=== PATIENT | female | born 1985 | race Caucasian/White ===

== ENCOUNTER 2023-07-23 13:13 | Emergency (ER) | payer BC ==
[2023-07-23 13:29] VITALS: TEMP 98.1
[2023-07-23] MEDS ORDERED: Hydromorphone 1 mg/ml Injection IV ONE (13:41)
[2023-07-23] MEDS ORDERED: Zofran 4 MG/2 ML VIAL IV ONE (13:41)
[2023-07-23] MEDS ORDERED: Sodium Chloride 0.9% 1000 ML 1,000 ML IV STA ×2 (13:41→15:35)
--- NOTE | 2023-07-23 13:41 | ERPHSYRPT ---
- History of Present Illness Time Seen by Provider: 07/23/23 13:30 Source: patient Exam Limitations: clinical condition Patient Subjective Stated Complaint: Vomiting/diarrhea Triage Nursing Assessment: Patient brought into ED per EMS and transferred to bed with assist of 2. Patient A+O X 3. Patient's skin pink, warm and dry. Patient complains of N/V and diarrhea that came on all of a sudden while traveling. Patient complains of body aches 03/11. Physician History: This is a 37-year-old white female patient who was just passing through the area when she had sudden, severe onset of significant vomiting and diarrhea as well as body aches. Patient was brought into the emergency department by the paramedics. Patient states she is traveling through the area with family members. Family members have much milder symptoms of bodyaches and nausea. Patient denies chest pain. Patient denies shortness of breath. Patient denies cough. Patient has no significant abdominal pain. Patient has no known drug allergies. Patient does have a history of hypothyroidism, gastroesophageal reflux disease and anxiety. Timing/Duration: today Cough Quality/Degree: no cough Possible Cause: no prior episodes Modifying Factors: Improves With: nothing Associated Symptoms: muscle aches, other, No chest pain/soreness, No cough (Vomiting and diarrhea) Allergies/Adverse Reactions: No Known Drug Allergies Allergy (Unverified 07/23/23 13:17) Hx Influenza Vaccination/Date Given: No Hx Pneumococcal Vaccination/Date Given: No Immunizations Up to Date: Yes Travel Risk - International Travel Have you traveled outside of the country in past 3 weeks: No - Coronavirus Screening Are you exhibiting any of the following symptoms?: Yes Symptoms: Vomiting/Diarrhea, Headaches/Body Aches/Fatigue Close contact with a COVID-19 positive Pt in past 14-21 Days: No - Vaccine Status Have you recieved a Covid-19 vaccination: Yes 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 - Vaccination Dates Dates if Unknown: na - Review of Systems Constitutional: Weakness Eyes: No Symptoms Ears, Nose, & Throat: No Symptoms Respiratory: No Symptoms Cardiac: No Symptoms Abdominal/Gastrointestinal: Nausea, Vomiting, Diarrhea, Appetite Changes, No Abdominal Pain, No Constipation Genitourinary Symptoms: No Symptoms Musculoskeletal: Arthralgias, Myalgias Skin: No Symptoms Neurological: No Symptoms Psychological: No Symptoms Endocrine: No Symptoms Hematologic/Lymphatic: No Symptoms Immunological/Allergic: No Symptoms All Other Systems: Reviewed and Negative - Past Medical History Pertinent Past Medical History: No Neurological History: No Pertinent History ENT History: No Pertinent History Cardiac History: No Pertinent History Respiratory History: No Pertinent History Endocrine Medical History: Hypothyroidism Musculoskeletal History: No Pertinent History GI Medical History: GERD History: No Pertinent History Psycho-Social History: Anxiety Female Reproductive Disorders: No Pertinent History - Past Surgical History Past Surgical History: Yes Neuro Surgical History: No Pertinent History Cardiac: No Pertinent History Respiratory: No Pertinent History Gastrointestinal: Appendectomy, Cholecystectomy Genitourinary: No Pertinent History Musculoskeletal: No Pertinent History Female Surgical History: No Pertinent History - Social History Smoking Status: Never smoker Exposure to second hand smoke: No Drug Use: none Patient Lives Alone: No - Female History Hx Last Menstrual Period: last month Hx Now: No - Nursing Vital Signs Nursing Vital Signs: Initial Vital Signs Temperature 98.1 F 07/23/23 13:20 Pulse Rate 104 H 07/23/23 13:20 Respiratory Rate 20 07/23/23 13:20 Blood Pressure 133/96 07/23/23 13:20 O2 Sat by Pulse Oximetry 100 07/23/23 13:20 Pain Scale Pain Intensity 5 - Physical Exam General Appearance: mild distress, alert, anxiety, thin Eye Exam: PERRL/EOMI, eyes nml inspection Ears, Nose, Throat Exam: normal ENT inspection, moist mucous membranes Neck Exam: normal inspection, non-tender, supple, full range of motion Respiratory Exam: normal breath sounds, lungs clear, airway intact, No chest tenderness, No respiratory distress Cardiovascular Exam: regular rate/rhythm, normal heart sounds, normal peripheral pulses Gastrointestinal/Abdomen Exam: soft, normal bowel sounds, No tenderness Pelvic Exam: not done Rectal Exam: not done Back Exam: normal inspection, normal range of motion, No CVA tenderness, No vertebral tenderness Extremity Exam: normal inspection, normal range of motion, pelvis stable Neurologic Exam: alert, oriented x 3, cooperative, bight maker II-XII nml as tested, normal mood/affect, sensation nml Skin Exam: normal color, warm, dry Lymphatic Exam: No adenopathy SpO2 Interpretation: normal SpO2: 100 O2 Delivery: Room Air - Course Nursing assessment & vital signs reviewed: Yes Ordered Tests: Active Orders 24 hr Category Date Time Status Clean Catch Urine Specimen STAT Care 07/23/23 13:41 Active IV Insertion STAT Care 07/23/23 13:41 Active ABDOMEN AND PELVIS W/0 CONTRAS [CT] Stat Exams 07/23/23 14:50 Completed AMYLASE Stat Lab 07/23/23 14:10 Completed BLOOD CULTURE Stat Lab 07/23/23 13:42 Received CBC W DIFF Stat Lab 07/23/23 14:10 Completed CMP Stat Lab 07/23/23 14:10 Completed LIPASE Stat Lab 07/23/23 14:10 Completed MONO SCREEN Stat Lab 07/23/23 14:10 Completed T4 (Thyroxine) Stat Lab 07/23/23 14:10 Completed TROPONIN Q4H Lab 07/23/23 14:10 Completed TROPONIN Q4H Lab 07/23/23 17:45 Ordered TROPONIN Q4H Lab 07/23/23 21:45 Ordered TSH, 3RD Generation Stat Lab 07/23/23 14:10 Completed UA W/RFX UR CULTURE Stat Lab 07/23/23 14:54 Completed Urine Triage Profile Stat Lab 07/23/23 14:54 Completed Medication Summary Generic Name Dose Route Start Last Admin Trade Name Freq PRN Reason Stop Dose Admin Sodium Chloride 1,000 mls @ 999 mls/hr 07/23/23 15:35 07/23/23 15:46 Sodium Chloride 0.9% 1000 Ml IV 07/23/23 16:35 999 mls/hr .Q1H1M STA Administration Discontinued Medications Generic Name Dose Route Start Last Admin Trade Name Freq PRN Reason Stop Dose Admin Hydromorphone HCl 1 mg 07/23/23 13:41 07/23/23 13:59 Hydromorphone 1 Mg/1ml Inj IV 07/23/23 13:42 1 mg STAT ONE Administration Hydromorphone HCl Confirm 07/23/23 13:53 Hydromorphone 1 Mg/1ml Inj Administered 07/23/23 13:54 Dose 1 mg .ROUTE .STK-MED ONE Sodium Chloride 1,000 mls @ 999 mls/hr 07/23/23 13:41 07/23/23 15:00 Sodium Chloride 0.9% 1000 Ml IV 07/23/23 14:41 Infused .Q1H1M STA Infusion Sodium Chloride Confirm 07/23/23 13:53 Sodium Chloride 0.9% 1000 Ml Administered 07/23/23 13:54 Dose 1,000 mls @ ud .ROUTE .STK-MED ONE Metronidazole 500 mg in 100 mls @ 200 mls/hr 07/23/23 15:35 07/23/23 15:46 Flagyl 500 Mg Ivpb IV 07/23/23 16:04 200 ml/hr STAT STA 200 mls/hr Administration Sodium Chloride Confirm 07/23/23 15:43 Sodium Chloride 0.9% 1000 Ml Administered 07/23/23 15:44 Dose 1,000 mls @ ud .ROUTE .STK-MED ONE Metronidazole Confirm 07/23/23 15:43 Flagyl 500 Mg Ivpb Administered 07/23/23 15:44 Dose 500 mg in 100 mls @ ud IV .STK-MED ONE Ondansetron HCl 4 mg 07/23/23 13:41 07/23/23 13:58 Ondansetron Hcl 4 Mg/2 Ml Vial IV 07/23/23 13:42 4 mg STAT ONE Administration Ondansetron HCl Confirm 07/23/23 13:53 Ondansetron Hcl 4 Mg/2 Ml Vial Administered 07/23/23 13:54 Dose 4 mg .ROUTE .STK-MED ONE Pantoprazole Sodium 40 mg 07/23/23 14:56 07/23/23 15:21 Pantoprazole 40 Mg Vial IV 07/23/23 14:57 40 mg STAT ONE Administration Pantoprazole Sodium Confirm 07/23/23 15:19 Pantoprazole 40 Mg Vial Administered 07/23/23 15:20 Dose 40 mg IV .STK-MED ONE Lab/Rad Data: Laboratory Result Diagrams 07/23/23 14:10 07/23/23 14:10 Laboratory Results 07/23/23 07/23/23 07/23/23 Range/Units 14:54 14:54 14:15 WBC (4.0-10.5) x10^3/uL RBC (4.1-5.4) x10^6/uL Hgb (12.0-16.0) g/dL Hct (35-47) % MCV (78-100) fL MCH (26-32) pg MCHC (32-36) g/dL RDW (11.5-14.0) % Plt Count (150-450) x10^3/uL MPV (7.5-11.0) fL Gran % (36.0-66.0) % Immature Gran % (Auto) (0.00-0.4) % Nucleat RBC Rel Count (0.00-0.1) % Eos # (Auto) (0-0.5) x10^3/uL Immature Gran # (Auto) (0.00-0.03) x10^3u/L Absolute Lymphs (auto) (1.0-4.6) x10^3/uL Absolute Monos (auto) (0.0-1.3) x10^3/uL Absolute Nucleated RBC (0.00-0.01) x10^3u/L Lymphocytes % (24.0-44.0) % Monocytes % (0.0-12.0) % Eosinophils % (0.00-5.0) % Basophils % (0.0-0.4) % Absolute Granulocytes (1.4-6.9) x10^3/uL Basophils # (0-0.4) x10^3/uL Sodium (137-145) mmol/L Potassium (3.5-5.1) mmol/L Chloride (98-107) mmol/L Carbon Dioxide (22-30) mmol/L Anion Gap (5-15) MEQ/L BUN (7-17) mg/dL Creatinine (0.52-1.04) mg/dL Estimated GFR ML/MIN Glucose (74-106) mg/dL Calcium (8.4-10.2) mg/dL Total Bilirubin (0.2-1.3) mg/dL AST (14-36) U/L ALT (0-35) U/L Alkaline Phosphatase (38-126) U/L Troponin I (0.000-0.034) ng/mL Serum Total Protein (6.3-8.2) g/dL Albumin (3.5-5.0) g/dL Amylase (30-110) U/L Lipase (23-300) U/L Thyroxine (T4) (5.53-10.96) ug/dL TSH 3rd Generation (0.47-4.68) mIU/L Urine Color Yellow (Yellow) Urine Appearance Clear (Clear) Urine pH 5.0 (4.6-8.0) Ur Specific [place] 1.020 (1.005-1.030) Urine Protein Negative (Negative) Urine Glucose (UA) Negative (Negative) mg/dL Urine Ketones Negative (Negative) Urine Blood Negative (Negative) Urine Nitrite Negative (Negative) Urine Bilirubin Negative (Negative) Urine Urobilinogen 0.2 (0.2) mg/dL Ur Leukocyte Esterase Negative (Negative) U Hyaline Cast (Auto) NONE SEEN (0-2) /LPF Urine Microscopic RBC 0-2 (0-5) /HPF Urine Microscopic WBC 0-2 (0-5) /HPF Ur Epithelial Cells None Seen (None Seen) /HPF Urine Bacteria None Seen (None Seen) /HPF Urine Culture Reflexed NO (NO) Urine Opiates Level POSITIVE A (NEGATIVE) Ur Methadone NEGATIVE (NEGATIVE) Urine Barbiturates NEGATIVE (NEGATIVE) Ur Phencyclidine (PCP) NEGATIVE (NEGATIVE) Urine Amphetamine NEGATIVE (NEGATIVE) U Benzodiazepine Level NEGATIVE (NEGATIVE) Urine Cocaine NEGATIVE (NEGATIVE) Urine Marijuana (THC) NEGATIVE (NEGATIVE) Monoscreen (NEGATIVE) Influenza Type A Ag NEGATIVE (NEGATIVE) Influenza Type B Ag NEGATIVE (NEGATIVE) RSV (PCR) NEGATIVE (NEGATIVE) SARS-CoV-2 (PCR) NEGATIVE (NEGATIVE) Slides for Path Review 07/23/23 07/23/23 07/23/23 Range/Units 14:10 14:10 14:10 WBC (4.0-10.5) x10^3/uL RBC (4.1-5.4) x10^6/uL Hgb (12.0-16.0) g/dL Hct (35-47) % MCV (78-100) fL MCH (26-32) pg MCHC (32-36) g/dL RDW (11.5-14.0) % Plt Count (150-450) x10^3/uL MPV (7.5-11.0) fL Gran % (36.0-66.0) % Immature Gran % (Auto) (0.00-0.4) % Nucleat RBC Rel Count (0.00-0.1) % Eos # (Auto) (0-0.5) x10^3/uL Immature Gran # (Auto) (0.00-0.03) x10^3u/L Absolute Lymphs (auto) (1.0-4.6) x10^3/uL Absolute Monos (auto) (0.0-1.3) x10^3/uL Absolute Nucleated RBC (0.00-0.01) x10^3u/L Lymphocytes % (24.0-44.0) % Monocytes % (0.0-12.0) % Eosinophils % (0.00-5.0) % Basophils % (0.0-0.4) % Absolute Granulocytes (1.4-6.9) x10^3/uL Basophils # (0-0.4) x10^3/uL Sodium 138 (137-145) mmol/L Potassium 4.2 (3.5-5.1) mmol/L Chloride 108 H (98-107) mmol/L Carbon Dioxide 20 L (22-30) mmol/L Anion Gap 14.5 (5-15) MEQ/L BUN 19 H (7-17) mg/dL Creatinine 0.65 (0.52-1.04) mg/dL Estimated GFR 114.8 ML/MIN Glucose 111 H (74-106) mg/dL Calcium 9.0 (8.4-10.2) mg/dL Total Bilirubin 0.70 (0.2-1.3) mg/dL AST 29 (14-36) U/L ALT 33 (0-35) U/L Alkaline Phosphatase 82 (38-126) U/L Troponin I < 0.012 (0.000-0.034) ng/mL Serum Total Protein 8.5 H (6.3-8.2) g/dL Albumin 5.2 H (3.5-5.0) g/dL Amylase 81 (30-110) U/L Lipase 63 (23-300) U/L Thyroxine (T4) 8.15 (5.53-10.96) ug/dL TSH 3rd Generation 1.310 (0.47-4.68) mIU/L Urine Color (Yellow) Urine Appearance (Clear) Urine pH (4.6-8.0) Ur Specific [place] (1.005-1.030) Urine Protein (Negative) Urine Glucose (UA) (Negative) mg/dL Urine Ketones (Negative) Urine Blood (Negative) Urine Nitrite (Negative) Urine Bilirubin (Negative) Urine Urobilinogen (0.2) mg/dL Ur Leukocyte Esterase (Negative) U Hyaline Cast (Auto) (0-2) /LPF Urine Microscopic RBC (0-5) /HPF Urine Microscopic WBC (0-5) /HPF Ur Epithelial Cells (None Seen) /HPF Urine Bacteria (None Seen) /HPF Urine Culture Reflexed (NO) Urine Opiates Level (NEGATIVE) Ur Methadone (NEGATIVE) Urine Barbiturates (NEGATIVE) Ur Phencyclidine (PCP) (NEGATIVE) Urine Amphetamine (NEGATIVE) U Benzodiazepine Level (NEGATIVE) Urine Cocaine (NEGATIVE) Urine Marijuana (THC) (NEGATIVE) Monoscreen NEGATIVE (NEGATIVE) Influenza Type A Ag (NEGATIVE) Influenza Type B Ag (NEGATIVE) RSV (PCR) (NEGATIVE) SARS-CoV-2 (PCR) (NEGATIVE) Slides for Path Review 07/23/23 Range/Units 14:10 WBC 20.6 H (4.0-10.5) x10^3/uL RBC 4.69 (4.1-5.4) x10^6/uL Hgb 14.5 (12.0-16.0) g/dL Hct 45.4 (35-47) % MCV 96.8 (78-100) fL MCH 30.9 (26-32) pg MCHC 31.9 L (32-36) g/dL RDW 13.3 (11.5-14.0) % Plt Count 273 (150-450) x10^3/uL MPV 10.2 (7.5-11.0) fL Gran % 94.9 H (36.0-66.0) % Immature Gran % (Auto) 0.5 H (0.00-0.4) % Nucleat RBC Rel Count 0.0 (0.00-0.1) % Eos # (Auto) 0.03 (0-0.5) x10^3/uL Immature Gran # (Auto) 0.10 H (0.00-0.03) x10^3u/L Absolute Lymphs (auto) 0.49 L (1.0-4.6) x10^3/uL Absolute Monos (auto) 0.41 (0.0-1.3) x10^3/uL Absolute Nucleated RBC 0.00 (0.00-0.01) x10^3u/L Lymphocytes % 2.4 L (24.0-44.0) % Monocytes % 2.0 (0.0-12.0) % Eosinophils % 0.1 (0.00-5.0) % Basophils % 0.1 (0.0-0.4) % Absolute Granulocytes 19.55 H (1.4-6.9) x10^3/uL Basophils # 0.03 (0-0.4) x10^3/uL Sodium (137-145) mmol/L Potassium (3.5-5.1) mmol/L Chloride (98-107) mmol/L Carbon Dioxide (22-30) mmol/L Anion Gap (5-15) MEQ/L BUN (7-17) mg/dL Creatinine (0.52-1.04) mg/dL Estimated GFR ML/MIN Glucose (74-106) mg/dL Calcium (8.4-10.2) mg/dL Total Bilirubin (0.2-1.3) mg/dL AST (14-36) U/L ALT (0-35) U/L Alkaline Phosphatase (38-126) U/L Troponin I (0.000-0.034) ng/mL Serum Total Protein (6.3-8.2) g/dL Albumin (3.5-5.0) g/dL Amylase (30-110) U/L Lipase (23-300) U/L Thyroxine (T4) (5.53-10.96) ug/dL TSH 3rd Generation (0.47-4.68) mIU/L Urine Color (Yellow) Urine Appearance (Clear) Urine pH (4.6-8.0) Ur Specific [place] (1.005-1.030) Urine Protein (Negative) Urine Glucose (UA) (Negative) mg/dL Urine Ketones (Negative) Urine Blood (Negative) Urine Nitrite (Negative) Urine Bilirubin (Negative) Urine Urobilinogen (0.2) mg/dL Ur Leukocyte Esterase (Negative) U Hyaline Cast (Auto) (0-2) /LPF Urine Microscopic RBC (0-5) /HPF Urine Microscopic WBC (0-5) /HPF Ur Epithelial Cells (None Seen) /HPF Urine Bacteria (None Seen) /HPF Urine Culture Reflexed (NO) Urine Opiates Level (NEGATIVE) Ur Methadone (NEGATIVE) Urine Barbiturates (NEGATIVE) Ur Phencyclidine (PCP) (NEGATIVE) Urine Amphetamine (NEGATIVE) U Benzodiazepine Level (NEGATIVE) Urine Cocaine (NEGATIVE) Urine Marijuana (THC) (NEGATIVE) Monoscreen (NEGATIVE) Influenza Type A Ag (NEGATIVE) Influenza Type B Ag (NEGATIVE) RSV (PCR) (NEGATIVE) SARS-CoV-2 (PCR) (NEGATIVE) Slides for Path Review YES - Progress Progress: improved, re-examined Progress Note: 07/23/23 14:19 This patient's medical issue is 1 of moderate complexity. Level complex in the workup performed is based on review of the patient's past medical history, review the patient's medication list, reviewed patient's drug allergy list, history present illness and physical findings on examination. Workup in this patient includes placement of intravenous line, infusion of normal saline solution, infusion of Zofran, infusion of Dilaudid, urinalysis, urine drug screen, amylase, lipase, viral swabs, monotest, T4 and TSH levels. 07/23/23 15:36 I interpreted the laboratory results. Patient has a 20,000 white count with a left shift. Her urinalysis is free of infection. CT scan abdomen pelvis without contrast was interpreted by the radiologist and I reviewed the impression. The impression is mild fluid distended small and large bowel loops with fluid leveling. Ileus versus enterocolitis. 07/23/23 16:22 I reexamined the patient. Patient states she is feeling much better now. Her nausea has resolved and she is thirsty. The diarrhea has slowed down. We will treat the patient for colitis. Patient states she has had colitis episodes in the past. Blood Culture(s) Obtained: Yes Antibiotics given: Yes Counseled pt/family regarding: lab results, diagnosis, need for follow-up Medical Desision Making - Independent Historian Additional History obtained from: Family - Diagnostic Testing Diagnostic test were ordered, analyzed, and reviewed by me: Yes Radiological Interpretation: Reviewed by me, Teleradiologist Report - Risk of complications The pt has a mod risk of morbidity or mortality based on: Need for prescription drug management - Departure Departure Disposition: Home Clinical Impression: Vomiting and diarrhea, Leukocytosis, Enterocolitis Condition: Stable Critical Care Time: No Referrals: Provider,Unknown [Primary Care Provider] - Follow up/PCP as directed Additional Instructions: Drink plenty of clear liquids before advancing your diet. Avoid fatty greasy spicy foods. Take your antibiotics as prescribed. Follow-up with your primary care provider for further evaluation and management. Prescriptions: Ondansetron ODT 4 MG [Zofran Odt 4 mg] 4 mg PO Q6H PRN PRN #10 tablet PRN Reason: Vomiting Metronidazole 500 mg [Flagyl 500 MG] 500 mg PO TID #21 tablet
[2023-07-23] MEDS ORDERED: Sodium Chloride 0.9% 1000 ML 1,000 ML ONE ×2 (13:53→15:43)
[2023-07-23] MEDS ORDERED: Hydromorphone 1 mg/ml Injection ONE (13:53)
[2023-07-23] MEDS ORDERED: Zofran 4 MG/2 ML VIAL ONE (13:53)
[2023-07-23 14:33] LABS: Absolute Neutrophil Ct (ANC) 19.55 x10^3/uL (1.4-6.9); BASOPHIL % 0.1 % (0.0-0.4); Basophil (Absolute #) 0.03 x10^3/uL (0-0.4); Eosinophil % 0.1 % (0.00-5.0); Eosinophil (Absolute #) 0.03 x10^3/uL (0-0.5); Hematocrit 45.4 % (35-47); Hemoglobin 14.5 g/dL (12.0-16.0); IMMATURE GRAN % 0.5 % (0.00-0.4); Lymphocyte (Absolute #) 0.49 x10^3/uL (1.0-4.6); Lymphocytes % 2.4 % (24.0-44.0); Mean Cell Volume 96.8 fL (78-100); Mean Corpuscular Hemoglobin 30.9 pg (26-32); Mean Corpuscular Hgb Concent. 31.9 g/dL (32-36); Mean Platelet Volume 10.2 fL (7.5-11.0); Monocyte (Absolute #) 0.41 x10^3/uL (0.0-1.3); Neutrophil % 94.9 % (36.0-66.0); Platelet Count 273 x10^3/uL (150-450); Red Blood Count 4.69 x10^6/uL (4.1-5.4); Red Cell Distribution Width 13.3 % (11.5-14.0); White Blood Count 20.6 x10^3/uL (4.0-10.5)
[2023-07-23] MEDS ORDERED: PROTONIX 40 MG IV IV ONE ×2 (14:56→15:19)
[2023-07-23 15:10] LABS: Appearance Clear (Clear); Bacteria None Seen /HPF (None Seen); Bilirubin Negative (Negative); Blood Negative (Negative); Epithelial Cells None Seen /HPF (None Seen); Glucose, Urine Negative (Negative); Hyaline Casts NONE SEEN /LPF (0-2); Ketones Negative (Negative); Leukocyte Esterase Negative (Negative); Nitrite Negative (Negative); Protein,Urine Dip Negative (Negative); RBC 0-2 /HPF (0-5); Urobilinogen 0.2 mg/dL (0.2); WBC 0-2 /HPF (0-5)
[2023-07-23 15:11] LABS: Slide Review 1 YES
[2023-07-23 15:11] LABS: ADD URINE CULTURE? NO (NO)
[2023-07-23 15:18] LABS: ALBUMIN 5.2 g/dL (3.5-5.0); ANION GAP 14.5 MEQ/L (5-15); BILIRUBIN,TOTAL 0.7 mg/dL (0.2-1.3); Creatinine 1 0.65 mg/dL (0.52-1.04); EST GLOMERULAR FILTRATION RATE 114.8 ML/MIN; Potassium 4.2 mmol/L (3.5-5.1); T4 (Thyroxine) 8.15 ug/dL (5.53-10.96); TSH, 3RD Generation 1.31 mIU/L (0.47-4.68); Total Protein 8.5 g/dL (6.3-8.2)
--- NOTE | 2023-07-23 15:19 | XRAY ---
Indication: Epigastric pain. Elevated WBC. Multiple contiguous axial images obtained through the abdomen and pelvis without contrast. Comparison: None Lung bases clear. Heart not enlarged. Noncontrasted stomach and bowel loops appear nonobstructed. Mild uniformly fluid distended small and large bowel loops with fluid leveling, ileus versus enterocolitis. Appendix not seen. Previous cholecystectomy. No free fluid/air. Remaining liver, pancreas, spleen, adrenal glands, kidneys, ureters, bladder, uterus, and aorta are unremarkable for noncontrast exam. Osseous structures intact with mild dextroscoliosis centered at thoracolumbar junction. Impression: Mild fluid distended small and large bowel loops with fluid leveling. Rule out ileus versus enterocolitis.
[2023-07-23 15:21] LABS: Amphetamine,Urine NEGATIVE (NEGATIVE); Barbiturate,Urine NEGATIVE (NEGATIVE); Benzodiazepine,Urine NEGATIVE (NEGATIVE); Cocaine,Urine NEGATIVE (NEGATIVE); Methadone,Urine NEGATIVE (NEGATIVE); Opiate,Urine POSITIVE (NEGATIVE); PCP,Urine NEGATIVE (NEGATIVE); THC,Urine NEGATIVE (NEGATIVE)
[2023-07-23] MEDS ORDERED: FLAGYL 500 MG IVPB 500 MG/100 ML BAG IV STA (15:35)
[2023-07-23] MEDS ORDERED: FLAGYL 500 MG IVPB 500 MG/100 ML BAG IV ONE (15:43)
[2023-07-23 16:05] LABS: INFLUENZA A NEGATIVE (NEGATIVE); INFLUENZA B NEGATIVE (NEGATIVE); RESPIRATORY SYNCTIAL VIRUS NEGATIVE (NEGATIVE); SARS-CoV-2 Xpert Express NEGATIVE (NEGATIVE)
[2023-07-23 16:20] VITALS: BP 129/81; PULSE 111; RESP 17
[2023-07-23 16:25] VITALS: O2SAT 100
== END 2023-07-23 17:16 | disposition home or self-care (01) ==
LOC: ED 13:13
DX: K52.9 Noninfective gastroenteritis and colitis, unspecified (principal); R11.2 Nausea with vomiting, unspecified; D72.829 Elevated white blood cell count, unspecified; M79.10 Myalgia, unspecified site
CPT/HCPCS: 0241U; 36000; 36415; 74176; 80053; 80307; 81001; 82150; 83690; 84436; 84443; 84484; 85025; 86308; 87040; 96374; 96375; 99284; J1170; J2405